=== PATIENT | female | born 1975 | race Two or more races ===

== ENCOUNTER 2023-04-11 22:10 | Emergency (ER) | payer OTHER, MEDICAID ==
[~2023-04-11] VITALS: Ht 170.2 cm; Wt 115.0 kg
[2023-04-11] MEDS ORDERED: diphenhdrAMINE HCL 25 MG CAP PO ONE (23:00)
[2023-04-11] MEDS ORDERED: diphenhdrAMINE HCL 50 MG/1 ML VL IM ONE (23:00)
[2023-04-11] MEDS ORDERED: DexAMETHasone SOD PHOS 10MG/1ML VIAL INJ IM ONE (23:00)
[2023-04-11] MEDS ORDERED: FAMOTIDINE 20 MG TAB PO ONE (23:00)
[2023-04-11] MEDS ORDERED: FAMOTIDINE (10MG/ML) 2ML VL IV ONE (23:00)
[2023-04-11] MEDS ORDERED: FAMO20TA10 PO (23:44)
[2023-04-11] MEDS ORDERED: PRED20TA2 PO (23:44)
[2023-04-11] MEDS ORDERED: DIPH25CA66 PO (23:44)
[2023-04-11 23:53] VITALS: BP 114/67; PULSE 71; RESP 18; TEMP 98.8; O2SAT 99
== END 2023-04-11 23:54 | disposition home or self-care (01) ==
LOC: ER 22:10
DX: T78.1XXA Other adverse food reactions, not elsewhere classified, initial encounter (principal); Z88.6 Allergy status to analgesic agent; Z88.8 Allergy status to other drugs, medicaments and biological substances; Z79.899 Other long term (current) drug therapy; X58.XXXA Exposure to other specified factors, initial encounter
CPT/HCPCS: 96372; 99284; J1100; J1200; J3490

== ENCOUNTER 2023-04-25 10:39 | Emergency (ER) | payer OTHER, MEDICAID ==
[~2023-04-25] VITALS: Ht 170.2 cm; Wt 115.2 kg
[~2023-04-25 10:39] MED LIST: DIPH25CA66 PO; FAMO20TA10 PO; PRED20TA2 PO
[2023-04-25 12:45] VITALS: BP 142/89; PULSE 89; RESP 18; TEMP 98.1; O2SAT 96
[2023-04-25] MEDS ORDERED: BACL10TA PO (14:04)
== END 2023-04-25 14:13 | disposition home or self-care (01) ==
LOC: ER 10:39
DX: S16.1XXA Strain of muscle, fascia and tendon at neck level, initial encounter (principal); Z88.6 Allergy status to analgesic agent; Z88.0 Allergy status to penicillin; Z79.899 Other long term (current) drug therapy; V49.88XA Car occupant (driver) (passenger) injured in other specified transport accidents, initial encounter; Y93.89 Activity, other specified; Y92.89 Other specified places as the place of occurrence of the external cause; Y99.8 Other external cause status
CPT/HCPCS: 72040; 72070; 73030